=== PATIENT | male | born 1980 | race Caucasian/White ===

== ENCOUNTER 2019-10-14 23:09 | Emergency (ER) | payer SELFPAY ==
[~2019-10-14] VITALS: Ht 180.3 cm; Wt 81.6 kg
--- NOTE | 2019-10-14 23:20 | NUR ---
BLOOD COLLECTED AND SENT TO LAB
--- NOTE | 2019-10-14 23:20 | NUR ---
PT CAME TO THE ER FROM HOME AFTER A SYNCOPAL EPISODE. PER EMS, PT WAS FOUND ON THE FLOOR, UNRESPONSIVE. SON CALLED 911. PT STATES "I TOOK VICODIN 20 MG AND PASSED OUT". NOTED PINPOINT PUPILS +DIAPHORETIC. PT AAOX4,VSS, REPSIRATIONS EVEN AND UNLABORED ON RA W/ NAD NOTED. PT CONNECTED TO THE MANAGER RESOURCE AND POX.
[2019-10-14] MEDS ORDERED: ONDANSETRON HCL/PF - ER 4 MG/2 ML VIAL IV ONE (23:30)
--- NOTE | 2019-10-14 23:36 | NUR ---
EKG AT BEDSIDE
--- NOTE | 2019-10-14 23:39 | NUR ---
URINE COLLECTED AND SENT TO LAB
[2019-10-14 23:40] LABS: BASOPHILS # (AUTO) 0.1 /CMM (0.0-0.2); BASOPHILS % (AUTO) 0.9 % (0.0-2.0); EOSINOPHILS % (AUTO) 0.8 % (0.0-6.0); HEMATOCRIT 41 % (39-51); HEMOGLOBIN 14.1 g/dL (13.5-17.5); LYMPHOCYTES # (AUTO) 2.4 /CMM (0.8-4.8); LYMPHOCYTES % (AUTO) 30.6 % (20.0-44.0); MEAN CORPUSCULAR HGB CONC 34 g/dl (31.0-36.0); MEAN CORPUSCULAR VOLUME 97 fL (80-96); MONOCYTES # (AUTO) 0.6 /CMM (0.1-1.30); MONOCYTES % (AUTO) 7.7 % (2.0-12.0); NEUTROPHILS # (AUTO) 4.6 /CMM (1.8-8.9); PLATELET COUNT (AUTO) 222 /CMM (150-450); RED BLOOD CELL COUNT(AUTO) 4.26 MIL/uL (4.5-6.0); WHITE BLOOD COUNT (AUTO) 7.7 K/uL (4.3-11.0)
[2019-10-14] MEDS ORDERED: ONDANSETRON HCL/PF 4 MG/2 ML VIAL ONE (23:45)
--- NOTE | 2019-10-14 23:53 | NUR ---
NAPOLEON [phone]
[2019-10-15] MEDS ORDERED: NALOXONE HCL 0.4 MG/ML AMPUL ONE (00:20)
[2019-10-15] MEDS ORDERED: NALOXONE HCL 0.4 MG/ML AMPUL IV ONE (00:30)
[2019-10-15] MEDS ORDERED: METOCLOPRAMIDE HCL 10 MG/2 ML VIAL ONE (00:33)
[2019-10-15] MEDS ORDERED: METOCLOPRAMIDE HCL 10 MG/2 ML VIAL IV ONE (01:00)
[2019-10-15 01:04] LABS: ALANINE AMINOTRANSFERASE 39 U/L (12-78); ALCOHOL, BLOOD < 3 mg/dL (0-0); ALKALINE PHOSPHATASE 87 U/L (46-116); ASPARTATE AMINOTRANSFERASE 27 U/L (15-37); BILIRUBIN,DIRECT 0.1 mg/dL (0.0-0.2); BILIRUBIN,TOTAL 0.4 mg/dL (0.2-1.0); CALCIUM, SERUM 9.1 mg/dL (8.5-10.1); CARBON DIOXIDE 26 mmol/L (21-32); CHLORIDE 101 mmol/L (98-107); CREATININE 0.9 mg/dL (0.6-1.3); GLUCOSE 261 mg/dL (74-106); POTASSIUM 3.2 mmol/L (3.5-5.1); SODIUM SERUM 140 mmol/L (136-145); UREA NITROGEN, BLOOD 17 mg/dL (7-18)
[2019-10-15 01:05] LABS: ACETAMINOPHEN < 2 ug/ml (10-30)
[2019-10-15 02:28] VITALS: BP 131/74
--- NOTE | 2019-10-15 02:28 | NUR ---
Patient discharged to home in stable condition. Written and verbal after care instructions given. Patient verbalizes understanding of instruction.IV removed. Catheter intact and site benign. Pressure and 4x4 applied to site. No bleeding noted.pt. ambulatory with a steady gait
== END 2019-10-15 02:31 | disposition home or self-care (01) ==
LOC: ER 23:15
DX: T40.601A Poisoning by unspecified narcotics, accidental (unintentional), initial encounter (principal); R55 Syncope and collapse; F17.200 Nicotine dependence, unspecified, uncomplicated; Z90.79 Acquired absence of other genital organ(s); Z88.0 Allergy status to penicillin; Y92.89 Other specified places as the place of occurrence of the external cause
CPT/HCPCS: 36415; 71045; 80048; 80076; 80305; 80307; 85025; 93005; 96374; 96375; 99285; 99406; G0480; J2310; J2405 ×2; J2765